=== PATIENT | male | born 1970 | race Two or more races ===

== ENCOUNTER 2018-09-27 18:46 | Emergency (ER) | payer OTHER ==
[2018-09-27] MEDS ORDERED: IBUPROFEN 800 MG TABLET PO ONE (19:06)
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
[2018-09-27 21:19] VITALS: BP 122/67
== END 2018-09-27 20:39 | disposition home or self-care (01) ==
LOC: ER 18:46
DX: S29.012A Strain of muscle and tendon of back wall of thorax, initial encounter (principal); S39.012A Strain of muscle, fascia and tendon of lower back, initial encounter; M54.6 Pain in thoracic spine; V89.2XXA Person injured in unspecified motor-vehicle accident, traffic, initial encounter
CPT/HCPCS: 72070; 72110; 99283